=== PATIENT | male | born 1995 | race Two or more races ===

== ENCOUNTER 2017-12-26 22:20 | Emergency (ER) | payer SELFPAY ==
[~2017-12-26] VITALS: Ht 175.3 cm; Wt 70.3 kg
--- NOTE | 2017-12-26 22:45 | NUR ---
BIBRA 40 FROM HOME FOR ETOH/ LAC TO LEFT THIGH, POSSIBLY WITH GLASS. DENIES HI SI. PT NOTED WITH ABRASION TO CHIN. PT AOX3 RR EVEN AND UNLABORED. NO SOB NOTED. NAD NOTED. NO NVD AT THIS TIME. PT GOWNED AND PLACED ON MONITOR WAITING FOR MD DE LOS SANTOS. MOTHER AT BEDSIDE.
[2017-12-26] MEDS ORDERED: OLANZAPINE 10 MG VIAL IM ONE ×2 (22:52→23:00)
[2017-12-26] MEDS ORDERED: LORAZEPAM INJ 2 MG/ML VIAL ONE (22:52)
[2017-12-26] MEDS ORDERED: LORAZEPAM INJ 2 MG/ML VIAL IM ONE (23:00)
--- NOTE | 2017-12-26 23:01 | NUR ---
LAB AT BEDSIDE FOR BLOOD DRAW.
[2017-12-26 23:12] LABS: BASOPHILS # (AUTO) 0.1 /CMM (0.0-0.2); BASOPHILS % (AUTO) 0.6 % (0.0-2.0); EOSINOPHILS % (AUTO) 0.4 % (0.0-6.0); HEMATOCRIT 49 % (39-51); HEMOGLOBIN 16.5 g/dL (13.5-17.5); LYMPHOCYTES # (AUTO) 1.6 /CMM (0.8-4.8); LYMPHOCYTES % (AUTO) 13.7 % (20.0-44.0); MEAN CORPUSCULAR HGB CONC 34 g/dl (31.0-36.0); MEAN CORPUSCULAR VOLUME 92 fL (80-96); MONOCYTES # (AUTO) 0.6 /CMM (0.1-1.30); MONOCYTES % (AUTO) 4.8 % (2.0-12.0); NEUTROPHILS # (AUTO) 9.6 /CMM (1.8-8.9); NEUTROPHILS % (AUTO) 80.5 % (43.0-81.0); PLATELET COUNT (AUTO) 325 /CMM (150-450); RDW COEFFICIENT OF VARIATION 14.3 (11.5-15.0); RED BLOOD CELL COUNT(AUTO) 5.33 MIL/uL (4.5-6.0); WHITE BLOOD COUNT (AUTO) 11.9 K/uL (4.3-11.0)
[2017-12-26 23:26] LABS: CALCIUM, SERUM 8.4 mg/dL (8.5-10.1); CREATININE 0.7 mg/dL (0.6-1.3); POTASSIUM 3.7 mmol/L (3.5-5.1)
[2017-12-26 23:33] LABS: ALBUMIN 4.5 g/dL (3.4-5.0); BILIRUBIN,DIRECT 0.1 mg/dL (0.0-0.2); BILIRUBIN,TOTAL 0.4 mg/dL (0.2-1.0); SALICYLATE 2.8 mg/dL (2.8-20.0)
--- NOTE | 2017-12-26 23:33 | NUR ---
RADIOLOGY AT BEDSIDE FOR XRAY.
--- NOTE | 2017-12-26 23:34 | NUR ---
PT TO CT VIA [facility]
--- NOTE | 2017-12-26 23:56 | NUR ---
PT RETURNED FROM CT.
[2017-12-27] MEDS ORDERED: LIDOCAINE 1%-EPI 1:100,000 20 ML VIAL ONE (00:01)
--- NOTE | 2017-12-27 00:10 | NUR ---
ROSALIND MIN AT BEDSIDE FOR LAC REPAIR.
--- NOTE | 2017-12-27 00:20 | NUR ---
URINE COLLECTED VIA STRAIGHT CATH PER DEGRASSI ORDERS. CALLED LAB FOR BRIDGES SUPERVISOR.
[2017-12-27 01:23] LABS: APPEARANCE,URINE CLEAR (CLEAR); BILIRUBIN,URINE NEGATIVE (NEGATIVE); BLOOD, URINE NEGATIVE Ery/uL (NEGATIVE); COLOR,URINE OTHER (YELLOW); KETONES,URINE NEGATIVE (NEGATIVE); LEUKOCYTE ESTERASE ,URINE NEGATIVE (NEGATIVE); NITRITE, URINE NEGATIVE (NEGATIVE); PROTEIN,URINE NEGATIVE (NEGATIVE); UGLUCOSE NEGATIVE (NEGATIVE); UROBILINOGEN,URINE 0.2 EU/dL (0.2)
--- NOTE | 2017-12-27 05:36 | NUR ---
REFER TO PAPER CHARTING PRIOR TO THIS TIME.
--- NOTE | 2017-12-27 06:42 | NUR ---
Patient is resting comfortably in bed with eyes closed. Easily aroused. VSS
--- NOTE | 2017-12-27 07:24 | NUR ---
REPORT GIVEN TO NICOLE DARNELL FOR FAISAL.
--- NOTE | 2017-12-27 07:25 | NUR ---
RECEIVED REPORT FOR FAISAL.
--- NOTE | 2017-12-27 08:46 | NUR ---
called clinician its kilo [phone]
--- NOTE | 2017-12-27 10:26 | NUR ---
MASSIMO RN AT FOR PSYCH EVAL.
[2017-12-27 11:12] VITALS: BP 124/72
--- NOTE | 2017-12-27 11:14 | NUR ---
Patient discharged to home in stable condition. Written and verbal after care instructions given. Patient verbalizes understanding of instruction.
== END 2017-12-27 11:13 | disposition home or self-care (01) ==
LOC: ER 22:25
DX: S71.112A Laceration without foreign body, left thigh, initial encounter (principal); S00.81XA Abrasion of other part of head, initial encounter; F28 Other psychotic disorder not due to a substance or known physiological condition; F19.10 Other psychoactive substance abuse, uncomplicated; F84.5 Asperger's syndrome; X58.XXXA Exposure to other specified factors, initial encounter; Y93.89 Activity, other specified; Y92.89 Other specified places as the place of occurrence of the external cause; Y99.8 Other external cause status
CPT/HCPCS: 12002; 36415; 70450; 72125; 73564; 80048; 80076; 80305; 80329; 81001; 85025; 96372; 99285; A4606; A6402; A6403; G0480 ×2; J2060; J3490 ×2; J7050; L0172; Z7610; 81000-TC; J7030